=== PATIENT | female | born 1985 | race Caucasian/White ===

== ENCOUNTER 2020-02-24 19:18 | Inpatient (IN) | payer OTHER ==
[~2020-02-24] VITALS: Ht 160 cm; Wt 61.7 kg
[2020-02-24] MEDS ORDERED: PRENA1 TRUE CO1 EACH (19:38)
== END 2020-02-26 14:25 | DRG 770 ==
LOC: ER 19:18 → SEC-K 02-25 14:31 → O/R 02-25 17:01 → OB/GYN 02-25 18:27
PROVIDERS: ADMIT Obstetrics & Gynecology; ATTEND Obstetrics & Gynecology
PROC: 10D17ZZ Extraction of Products of Conception, Retained, Via Natural or Artificial Opening (ICD-10-PCS; principal; 2020-02-25 14:00)
DX: O03.1 Delayed or excessive hemorrhage following incomplete spontaneous abortion (principal)